=== PATIENT | male | born 1955 ===

== ENCOUNTER 2023-03-28 08:29 | Inpatient (IN) | payer MEDICARE, SELFPAY ==
[2023-03-28] MEDS ORDERED: Cefepime 2 GM VIAL ONE (09:14)
[2023-03-28] MEDS ORDERED: Vancomycin 1 GM/200 ML (FROZEN) BAG ONE (09:14)
[2023-03-28] MEDS ORDERED: Sodium Chloride 0.9% 100 ML ONE (09:14)
[2023-03-28 10:08] LABS: Amphetamine Not Detected (NotDetected); Barbiturates Screen Not Detected (NotDetected); Benzodiazepine Screen Not Detected (NotDetected); Cocaine Metabolite Screen Not Detected (NotDetected); Methadone Not Detected (NotDetected); Methamphetamine Not Detected (NotDetected); Opiate Screen Not Detected (NotDetected); Oxycodone Screen Not Detected (NotDetected); Phencyclidine (PCP) Not Detected (NotDetected); THC/Cannabinoid Screen Not Detected (NotDetected); Tricyclic Screen Not Detected (NotDetected)
[2023-03-28 10:39] LABS: Bacteria/HPF None Seen HPF (None Seen); Bilirubin Negative (Negative); Blood, Urine Negative (Negative); CAUTI Indications for Culture Alt mental st,lethar; Clarity Clear (Clear); Glucose, Urine (Dipstick) Normal (Negative); Ketone, Urine Negative (Negative); Leukocyte Negative Leu/uL (Negative); Nitrite Negative (Negative); Protein, Urine (Dipstick) 20 mg/dL (Neg-Trace); Specific Gravity, Urine 1.017 (1.002-1.036); Squamous Epithelial None Seen HPF (0-3); Urobilinogen Normal mg/dL (Less than 2); pH, Urine 8.5 (5.0-9.0)
[2023-03-28 10:40] LABS: Urine Culture Reflex Yes Yes
[2023-03-28 11:08] LABS: #Eosinphils 0.1 thou/uL (0.0-0.7); #Monocytes 0.9 thou/uL (0.11-0.59); #Neutrophils 14.2 thou/uL (1.40-6.50); %Basophils 0.2 % (0.0-1.0); %Eosinophils 0.4 % (0.0-10.0); %Lymphocytes 10.5 % (21.0-51.0); %Monocytes 5.4 % (0.0-10.0); %Neutrophils 83.1 % (42.0-75.0); Hematocrit 36.2 % (42.0-52.0); Hemoglobin 11.4 g/dL (14.0-18.0); Mean Corpuscular HGB CONC 31.5 g/dL (32.0-36.0); Mean Corpuscular Hemoglobin 30.1 pg (27.0-31.0); Mean Corpuscular Volume 95.5 fl (78.0-98.0); Mean Platelet Volume 8.4 fL (7.4-10.4); Platelet Count 316 10x3/uL (130-400); RBC Distribution Width 12.9 % (11.5-14.5); Red Blood Cell (RBC) Count 3.79 mill/uL (4.70-6.10); White Blood Cell (WBC) Count 17.1 10x3/uL (4.8-10.8)
[2023-03-28 11:24] LABS: INR-International Normal Ratio 1.2; PTT 37.7 sec (22.9-36.1); Prothrombin Time 15.9 sec (12.0-14.7)
[2023-03-28 11:34] LABS: Acetaminophen Less than 10 mcg/mL (10.0-30.0); Alcohol Less than 10.0 mg/dL (Less than 10); Salicylate Less than 8.0 mg/dL (15.0-30.0)
[2023-03-28 11:36] LABS: ALT (SGPT) 9 U/L (8-55); AST (SGOT) 11 U/L (5-34); Albumin 2.4 g/dL (3.4-4.8); Alkaline Phosphatase 66 U/L (40-110); Anion Gap 11 mmol/L (10-20); BUN (Urea Nitrogen) 7 mg/dL (8.4-25.7); Bilirubin, Total 0.5 mg/dL (0.2-1.2); Calc. Creatinine Clearance 0 mL/min (70-130); Carbon Dioxide 26 mmol/L (23-31); Chloride 105 mmol/L (98-107); Estimated GFR 110; Globulin 3.6 g/dL (2.4-3.5); Glucose 110 mg/dL (80-115); Potassium 3.8 mmol/L (3.5-5.1); Sodium 138 mmol/L (136-145)
[2023-03-28 11:47] LABS: Troponin I Less than 0.010 ng/mL (< 0.028)
[2023-03-28] MEDS ORDERED: Acetaminophen 650 MG Suppository PR PRN (18:43)
[2023-03-28] MEDS ORDERED: Calcium Carbonate 500 MG ChewTAB PO PRN (18:43)
[2023-03-28] MEDS ORDERED: Acetaminophen 325 MG TAB PO PRN (18:43)
[2023-03-28] MEDS ORDERED: Piperacillin/Tazobactam 3.375 GM in Sodium Chloride 0.9% 100 ML IVPB SCH (19:00)
[2023-03-28] MEDS ORDERED: levETIRAcetam 500 MG/5 ML VIAL SLOW IVP SCH (21:00)
[2023-03-28] MEDS: Dextrose 5%-Lactated Ringers 1,000 ML IV SCH (22:50)
[2023-03-28] MEDS: Heparin 5,000 UNITS/ML VIAL SC SCH (22:51)
[2023-03-28] MEDS: Piperacillin/Tazobactam 3.375 GM in Sodium Chloride 0.9% 100 ML IVPB SCH (22:51)
[2023-03-28] MEDS: Famotidine/PF 20 mg/2ml Vial SLOW IVP SCH (22:51)
[2023-03-28] MEDS: Famotidine 20 MG TAB PO SCH (22:51)
[2023-03-29 04:15] LABS: #Monocytes 0.6 thou/uL (0.11-0.59); #Neutrophils 8.6 thou/uL (1.40-6.50); %Basophils 0.1 % (0.0-1.0); %Eosinophils 0.3 % (0.0-10.0); %Lymphocytes 10.5 % (21.0-51.0); %Monocytes 5.7 % (0.0-10.0); %Neutrophils 83.1 % (42.0-75.0); Hematocrit 35.9 % (42.0-52.0); Hemoglobin 11.3 g/dL (14.0-18.0); Mean Corpuscular HGB CONC 31.5 g/dL (32.0-36.0); Mean Corpuscular Hemoglobin 30.2 pg (27.0-31.0); Mean Platelet Volume 9.2 fL (7.4-10.4); Platelet Count 238 10x3/uL (130-400); RBC Distribution Width 12.8 % (11.5-14.5); Red Blood Cell (RBC) Count 3.74 mill/uL (4.70-6.10); White Blood Cell (WBC) Count 10.4 10x3/uL (4.8-10.8)
[2023-03-29 04:40] LABS: ALT (SGPT) 9 U/L (8-55); AST (SGOT) 10 U/L (5-34); Albumin 2.4 g/dL (3.4-4.8); Alkaline Phosphatase 63 U/L (40-110); Anion Gap 12 mmol/L (10-20); BUN (Urea Nitrogen) 8 mg/dL (8.4-25.7); Bilirubin, Total 0.5 mg/dL (0.2-1.2); CRP (Inflammatory) 5.44 mg/dL (= or < 0.5); Calc. Creatinine Clearance 0 mL/min (70-130); Calcium 8.3 mg/dL (7.8-10.44); Carbon Dioxide 24 mmol/L (23-31); Chloride 105 mmol/L (98-107); Estimated GFR 107; Globulin 3.6 g/dL (2.4-3.5); Glucose 158 mg/dL (80-115); Potassium 3.7 mmol/L (3.5-5.1); Sodium 137 mmol/L (136-145)
[2023-03-29 04:41] LABS: Phosphorus 2.8 mg/dL (2.3-4.7)
[2023-03-29] MEDS: Piperacillin/Tazobactam 3.375 GM in Sodium Chloride 0.9% 100 ML IVPB SCH ×3 (05:26→21:41)
[2023-03-29] MEDS ORDERED: FLU VACC QS2023(65UP)/MF59C/PF 60 MCG/0.5 ML SYRINGE IM ONE (09:00)
[2023-03-29] MEDS ORDERED: levETIRAcetam 500 MG/5 ML VIAL SLOW IVP SCH (11:00)
[2023-03-29] MEDS: Dextrose 5%-Lactated Ringers 1,000 ML IV SCH ×2 (11:26→21:42)
[2023-03-29] MEDS: Heparin 5,000 UNITS/ML VIAL SC SCH ×2 (11:27→21:41)
[2023-03-29] MEDS: Famotidine 20 MG TAB PO SCH ×2 (11:28→21:41)
[2023-03-29] MEDS: Famotidine/PF 20 mg/2ml Vial SLOW IVP SCH ×2 (11:28→21:41)
[2023-03-29] MEDS: Divalproex Sodium 250 MG (DR) TAB PO SCH ×2 (11:32→21:41)
[2023-03-29] MEDS: levETIRAcetam 500 MG TAB PO SCH (11:33)
[2023-03-29] MEDS: Sertraline 25 MG TAB PO SCH ×2 (11:34→21:41)
[2023-03-29] MEDS: levETIRAcetam 500 MG/5 ML VIAL SLOW IVP SCH (21:41)
[2023-03-29] MEDS: Donepezil HCl 10 MG TAB PO SCH (21:41)
[2023-03-29] MEDS: Tamsulosin HCl 0.4 MG CAP PO SCH (21:41)
[2023-03-29] MEDS: QUEtiapine 25 MG TAB PO SCH (21:41)
[2023-03-30 05:11] LABS: Anion Gap 11 mmol/L (10-20); BUN (Urea Nitrogen) 5 mg/dL (8.4-25.7); Calc. Creatinine Clearance 90 mL/min (70-130); Calcium 8.2 mg/dL (7.8-10.44); Carbon Dioxide 26 mmol/L (23-31); Chloride 102 mmol/L (98-107); Estimated GFR 109; Glucose 102 mg/dL (80-115); Potassium 3.4 mmol/L (3.5-5.1); Sodium 136 mmol/L (136-145)
[2023-03-30] MEDS: Piperacillin/Tazobactam 3.375 GM in Sodium Chloride 0.9% 100 ML IVPB SCH ×3 (05:39→21:33)
[2023-03-30] MEDS ORDERED: Potassium Chloride 20 MEQ TAB PO SCH (07:45)
[2023-03-30] MEDS: Famotidine/PF 20 mg/2ml Vial SLOW IVP SCH ×2 (10:45→21:33)
[2023-03-30] MEDS: levETIRAcetam 500 MG/5 ML VIAL SLOW IVP SCH ×2 (10:46→21:33)
[2023-03-30] MEDS: Heparin 5,000 UNITS/ML VIAL SC SCH ×2 (10:47→21:33)
[2023-03-30] MEDS: Sertraline 25 MG TAB PO SCH ×2 (11:59→21:37)
[2023-03-30] MEDS: Divalproex Sodium 250 MG (DR) TAB PO SCH ×2 (12:00→21:33)
[2023-03-30] MEDS: Famotidine 20 MG TAB PO SCH ×2 (12:01→21:34)
[2023-03-30] MEDS: Dextrose 5%-Lactated Ringers 1,000 ML IV SCH (14:15)
[2023-03-30] MEDS: Donepezil HCl 10 MG TAB PO SCH (21:33)
[2023-03-30] MEDS: Tamsulosin HCl 0.4 MG CAP PO SCH (21:34)
[2023-03-30] MEDS: QUEtiapine 25 MG TAB PO SCH (21:37)
[2023-03-31 05:02] LABS: #Neutrophils 7.3 thou/uL (1.40-6.50); %Basophils 0.1 % (0.0-1.0); %Eosinophils 0.1 % (0.0-10.0); %Lymphocytes 10.9 % (21.0-51.0); %Monocytes 10.5 % (0.0-10.0); %Neutrophils 78.1 % (42.0-75.0); Hematocrit 30.8 % (42.0-52.0); Mean Corpuscular HGB CONC 32.5 g/dL (32.0-36.0); Mean Corpuscular Hemoglobin 30.1 pg (27.0-31.0); Mean Corpuscular Volume 92.8 fl (78.0-98.0); Mean Platelet Volume 8.3 fL (7.4-10.4); Platelet Count 272 10x3/uL (130-400); RBC Distribution Width 12.7 % (11.5-14.5); Red Blood Cell (RBC) Count 3.32 mill/uL (4.70-6.10); White Blood Cell (WBC) Count 9.3 10x3/uL (4.8-10.8)
[2023-03-31] MEDS: Dextrose 5%-Lactated Ringers 1,000 ML IV SCH ×2 (05:41→13:18)
[2023-03-31] MEDS: Piperacillin/Tazobactam 3.375 GM in Sodium Chloride 0.9% 100 ML IVPB SCH ×3 (05:41→21:02)
[2023-03-31 05:59] LABS: Anion Gap 10 mmol/L (10-20); BUN (Urea Nitrogen) 6 mg/dL (8.4-25.7); Calc. Creatinine Clearance 88 mL/min (70-130); Carbon Dioxide 26 mmol/L (23-31); Chloride 103 mmol/L (98-107); Estimated GFR 108; Glucose 132 mg/dL (80-115); Potassium 3.3 mmol/L (3.5-5.1); Sodium 136 mmol/L (136-145)
[2023-03-31] MEDS: Heparin 5,000 UNITS/ML VIAL SC SCH ×2 (09:59→21:02)
[2023-03-31] MEDS: levETIRAcetam 500 MG/5 ML VIAL SLOW IVP SCH ×2 (09:59→21:02)
[2023-03-31] MEDS: Famotidine 20 MG TAB PO SCH ×2 (09:59→21:01)
[2023-03-31] MEDS: Famotidine/PF 20 mg/2ml Vial SLOW IVP SCH ×2 (09:59→21:02)
[2023-03-31] MEDS ORDERED: Potassium Chloride 40 MEQ in Premix 1 BAG IVPB SCH (10:00)
[2023-03-31] MEDS: Sertraline 25 MG TAB PO SCH ×2 (10:09→21:02)
[2023-03-31] MEDS: Divalproex Sodium 250 MG (DR) TAB PO SCH ×2 (10:12→19:16)
[2023-03-31] MEDS: Potassium Chloride 20 MEQ in Premix 1 BAG IVPB SCH ×2 (13:17→16:09)
[2023-03-31] MEDS: Donepezil HCl 10 MG TAB PO SCH (21:02)
[2023-03-31] MEDS: Tamsulosin HCl 0.4 MG CAP PO SCH (21:02)
[2023-03-31] MEDS: QUEtiapine 25 MG TAB PO SCH (21:02)
[2023-04-01] MEDS: Dextrose 5%-Lactated Ringers 1,000 ML IV SCH ×2 (02:02→13:50)
[2023-04-01] MEDS: Piperacillin/Tazobactam 3.375 GM in Sodium Chloride 0.9% 100 ML IVPB SCH ×3 (05:37→21:00)
[2023-04-01 05:57] LABS: #Monocytes 0.9 thou/uL (0.11-0.59); #Neutrophils 6.5 thou/uL (1.40-6.50); %Basophils 0.1 % (0.0-1.0); %Eosinophils 0.2 % (0.0-10.0); %Lymphocytes 15.1 % (21.0-51.0); %Monocytes 10.3 % (0.0-10.0); %Neutrophils 73.8 % (42.0-75.0); Hematocrit 28.9 % (42.0-52.0); Hemoglobin 9.4 g/dL (14.0-18.0); Mean Corpuscular HGB CONC 32.5 g/dL (32.0-36.0); Mean Corpuscular Hemoglobin 30.1 pg (27.0-31.0); Mean Corpuscular Volume 92.6 fl (78.0-98.0); Mean Platelet Volume 8.5 fL (7.4-10.4); Platelet Count 282 10x3/uL (130-400); RBC Distribution Width 12.9 % (11.5-14.5); Red Blood Cell (RBC) Count 3.12 mill/uL (4.70-6.10); White Blood Cell (WBC) Count 8.8 10x3/uL (4.8-10.8)
[2023-04-01 06:28] LABS: Anion Gap 11 mmol/L (10-20); BUN (Urea Nitrogen) 7 mg/dL (8.4-25.7); Calc. Creatinine Clearance 95 mL/min (70-130); Carbon Dioxide 25 mmol/L (23-31); Chloride 103 mmol/L (98-107); Estimated GFR 111; Glucose 99 mg/dL (80-115); Potassium 3.6 mmol/L (3.5-5.1); Sodium 135 mmol/L (136-145)
[2023-04-01] MEDS: levETIRAcetam 500 MG/5 ML VIAL SLOW IVP SCH ×2 (09:40→21:00)
[2023-04-01] MEDS: Divalproex Sodium 125 mg Sprinkle Capsule PO SCH ×2 (09:40→20:58)
[2023-04-01] MEDS: Heparin 5,000 UNITS/ML VIAL SC SCH ×2 (09:40→21:00)
[2023-04-01] MEDS: Famotidine/PF 20 mg/2ml Vial SLOW IVP SCH ×2 (09:40→21:20)
[2023-04-01] MEDS: Sertraline 25 MG TAB PO SCH ×2 (09:41→20:59)
[2023-04-01] MEDS: Famotidine 20 MG TAB PO SCH ×2 (09:41→20:58)
[2023-04-01] MEDS: Donepezil HCl 10 MG TAB PO SCH (20:58)
[2023-04-01] MEDS: QUEtiapine 25 MG TAB PO SCH (20:59)
[2023-04-01] MEDS: Tamsulosin HCl 0.4 MG CAP PO SCH (21:00)
[2023-04-02] MEDS: Piperacillin/Tazobactam 3.375 GM in Sodium Chloride 0.9% 100 ML IVPB SCH ×3 (06:00→22:22)
[2023-04-02] MEDS: Dextrose 5%-Lactated Ringers 1,000 ML IV SCH ×2 (06:00→20:29)
[2023-04-02 07:26] LABS: #Neutrophils 7.8 thou/uL (1.40-6.50); %Basophils 0.2 % (0.0-1.0); %Eosinophils 0.1 % (0.0-10.0); %Lymphocytes 11.7 % (21.0-51.0); %Monocytes 9.7 % (0.0-10.0); %Neutrophils 77.7 % (42.0-75.0); Hematocrit 30.9 % (42.0-52.0); Hemoglobin 9.9 g/dL (14.0-18.0); Mean Corpuscular Hemoglobin 29.8 pg (27.0-31.0); Mean Corpuscular Volume 93.1 fl (78.0-98.0); Mean Platelet Volume 8.6 fL (7.4-10.4); Platelet Count 290 10x3/uL (130-400); RBC Distribution Width 12.9 % (11.5-14.5); Red Blood Cell (RBC) Count 3.32 mill/uL (4.70-6.10)
[2023-04-02 07:50] LABS: Anion Gap 11 mmol/L (10-20); BUN (Urea Nitrogen) 7 mg/dL (8.4-25.7); Calc. Creatinine Clearance 99 mL/min (70-130); Calcium 7.7 mg/dL (7.8-10.44); Carbon Dioxide 25 mmol/L (23-31); Chloride 102 mmol/L (98-107); Estimated GFR 112; Glucose 90 mg/dL (80-115); Potassium 3.5 mmol/L (3.5-5.1); Sodium 134 mmol/L (136-145)
[2023-04-02] MEDS ORDERED: Ketamine In 0.9 % NaCl 50 MG/5 ML SYRINGE ONE (10:33)
[2023-04-02] MEDS ORDERED: Dexamethasone 20 MG/5 ML VIAL ONE ×2 (10:34)
[2023-04-02] MEDS ORDERED: Ketorolac Tromethamine 30 MG/ML VIAL ONE ×2 (10:34→10:48)
[2023-04-02] MEDS ORDERED: Promethazine HCl 25 MG/ML VIAL IM PRN (10:43)
[2023-04-02] MEDS ORDERED: Ondansetron HCl/PF 4 MG/2 ML Vial IVP PRN (10:43)
[2023-04-02] MEDS ORDERED: HYDROmorphone 2 MG/ML VIAL SLOW IVP PRN (10:43)
[2023-04-02] MEDS ORDERED: PACU-Morphine 4MG/ML VIAL SLOW IVP PRN (10:43)
[2023-04-02] MEDS ORDERED: Morphine Sulfate 2 MG/ML SYRINGE SLOW IVP PRN (10:43)
[2023-04-02] MEDS: Famotidine 20 MG TAB PO SCH ×2 (12:23→22:21)
[2023-04-02] MEDS: Sertraline 25 MG TAB PO SCH ×2 (12:24→22:20)
[2023-04-02] MEDS: Divalproex Sodium 125 mg Sprinkle Capsule PO SCH ×2 (12:24→22:32)
[2023-04-02] MEDS: levETIRAcetam 500 MG/5 ML VIAL SLOW IVP SCH ×2 (12:25→22:20)
[2023-04-02] MEDS: Famotidine/PF 20 mg/2ml Vial SLOW IVP SCH ×2 (12:25→22:21)
[2023-04-02] MEDS: Heparin 5,000 UNITS/ML VIAL SC SCH ×2 (12:25→22:21)
[2023-04-02] MEDS: Tamsulosin HCl 0.4 MG CAP PO SCH (22:20)
[2023-04-02] MEDS: Donepezil HCl 10 MG TAB PO SCH (22:20)
[2023-04-02] MEDS: levETIRAcetam 500 MG TAB PO SCH (22:20)
[2023-04-02] MEDS: QUEtiapine 25 MG TAB PO SCH (22:21)
[2023-04-03] MEDS: Piperacillin/Tazobactam 3.375 GM in Sodium Chloride 0.9% 100 ML IVPB SCH ×2 (05:17→15:19)
[2023-04-03 07:26] LABS: #Monocytes 0.6 thou/uL (0.11-0.59); #Neutrophils 5.4 thou/uL (1.40-6.50); %Basophils 0.1 % (0.0-1.0); %Lymphocytes 22.1 % (21.0-51.0); %Neutrophils 69.5 % (42.0-75.0); Hemoglobin 9.2 g/dL (14.0-18.0); Mean Corpuscular HGB CONC 32.9 g/dL (32.0-36.0); Mean Corpuscular Hemoglobin 30.2 pg (27.0-31.0); Mean Corpuscular Volume 91.8 fl (78.0-98.0); Mean Platelet Volume 8.6 fL (7.4-10.4); Platelet Count 280 10x3/uL (130-400); RBC Distribution Width 13.1 % (11.5-14.5); Red Blood Cell (RBC) Count 3.05 mill/uL (4.70-6.10); White Blood Cell (WBC) Count 7.7 10x3/uL (4.8-10.8)
[2023-04-03 07:53] LABS: Anion Gap 11 mmol/L (10-20); BUN (Urea Nitrogen) 12 mg/dL (8.4-25.7); Calc. Creatinine Clearance 92 mL/min (70-130); Calcium 8.4 mg/dL (7.8-10.44); Carbon Dioxide 26 mmol/L (23-31); Chloride 105 mmol/L (98-107); Estimated GFR 110; Glucose 88 mg/dL (80-115); Potassium 3.3 mmol/L (3.5-5.1); Sodium 139 mmol/L (136-145)
[2023-04-03 08:03] VITALS: TEMP 97.5
[2023-04-03] MEDS ORDERED: Potassium Chloride 20 MEQ TAB PO SCH (08:15)
[2023-04-03] MEDS: Heparin 5,000 UNITS/ML VIAL SC SCH (08:52)
[2023-04-03] MEDS: Divalproex Sodium 125 mg Sprinkle Capsule PO SCH (08:52)
[2023-04-03] MEDS: Sertraline 25 MG TAB PO SCH (08:53)
[2023-04-03] MEDS: levETIRAcetam 500 MG/5 ML VIAL SLOW IVP SCH (08:53)
[2023-04-03] MEDS: Famotidine/PF 20 mg/2ml Vial SLOW IVP SCH (08:53)
[2023-04-03] MEDS: Famotidine 20 MG TAB PO SCH (08:53)
[2023-04-03] MEDS: Dextrose 5%-Lactated Ringers 1,000 ML IV SCH (08:53)
[2023-04-03 12:20] VITALS: BP 114/73
== END 2023-04-03 15:45 | disposition home health service (06) | DRG 853 ==
LOC: ERS 08:29 → ERHOLD 14:56 → 2NO 22:03 → OBSVTOIN 03-29 08:13 → T4-B 03-31 16:49
PROVIDERS: ADMIT Internal Medicine; ATTEND Internal Medicine
PROC: 3E03329 Introduction of Other Anti-infective into Peripheral Vein, Percutaneous Approach (ICD-10-PCS; 2023-03-28)
PROC: 0JBM0ZZ Excision of Left Upper Leg Subcutaneous Tissue and Fascia, Open Approach (ICD-10-PCS; principal; 2023-04-02)
PROC: 0QB10ZZ Excision of Sacrum, Open Approach (ICD-10-PCS; 2023-04-02)
DX: A41.9 Sepsis, unspecified organism (principal); E43 Unspecified severe protein-calorie malnutrition; L89.154 Pressure ulcer of sacral region, stage 4; J69.0 Pneumonitis due to inhalation of food and vomit; J18.9 Pneumonia, unspecified organism; G93.41 Metabolic encephalopathy; T83.511A Infection and inflammatory reaction due to indwelling urethral catheter, initial encounter; F03.94 Unspecified dementia, unspecified severity, with anxiety; R64 Cachexia; N39.0 Urinary tract infection, site not specified; Z66 Do not resuscitate; G40.909 Epilepsy, unspecified, not intractable, without status epilepticus; E11.9 Type 2 diabetes mellitus without complications; N40.1 Benign prostatic hyperplasia with lower urinary tract symptoms; R13.12 Dysphagia, oropharyngeal phase; E87.6 Hypokalemia; L89.219 Pressure ulcer of right hip, unspecified stage; L89.229 Pressure ulcer of left hip, unspecified stage; R33.8 Other retention of urine; Z98.890 Other specified postprocedural states; Z79.84 Long term (current) use of oral hypoglycemic drugs; Z79.899 Other long term (current) drug therapy; Z79.51 Long term (current) use of inhaled steroids; Z82.49 Family history of ischemic heart disease and other diseases of the circulatory system; Z74.01 Bed confinement status
CPT/HCPCS: 36415; 36416; 70450; 71045; 80048; 80053; 80306; 80307; 81001; 83735; 84100; 84484; 85025; 85610; 85730; 86140; 87040; 87086; 93005; 96372; 96374; 96375; 96376; 97139; C1713; G0378; J0692; J1100; J1644; J1885; J1953; J2543; J3370-JW; J3480; J3490; S0028